=== PATIENT | male | born 2000 | race Caucasian/White ===

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

== ENCOUNTER 2021-01-03 13:01 | Outpatient (CLI) | payer BC, SELFPAY ==
--- NOTE | 2021-01-03 13:00 | RT.EKG_ITS ---
APPROVED REPORT Exam: Resting ECG Patient Location: O HR:90 bpm ECG Measurements Heart Rate 90 AXIS IA 142 P 41 QRSd 92 QRS 54 QT 356 T -58 QTc 436 Conclusion Sinus rhythm...normal P axis, V-rate 50- [address] elevation, anterior leads...ST >0.15mV in V1-V4 Baseline wander in lead(s) V5
== END 2021-01-03 13:02 | disposition home or self-care (01) ==
LOC: DI.CARD 13:02
PROVIDERS: PCP Family Medicine; Visit Provider Internal Medicine Cardiovascular Disease
DX: I42.9 Cardiomyopathy, unspecified (principal)
CPT/HCPCS: 93010; 93005

== ENCOUNTER 2021-04-23 13:04 | Outpatient (CLI) | payer BC, SELFPAY ==
--- NOTE | 2021-04-23 | DI.RAD_ITS ---
Exam(s) XR SHOULDER LT COMPLETE 2+V EXAM: XR SHOULDER LT COMPLETE 2+V CLINICAL HISTORY: LT SHOULDER PAIN, M25.512. TECHNIQUE: 2D digital imaging was performed. COMPARISON: CR LEFT SHOULDER COMPLETE from 12/21/2015 CR CHEST 2 VIEWS PA,LAT from 04/22/2018 CR XR shoulder LT complete 2+V from 12/16/2018 FINDINGS: BONES: No acute fracture is present. No bony destructive lesion is seen. JOINTS: No dislocation present. No widening of the AC joint. SOFT TISSUE: Normal. IMPRESSION: Unremarkable radiographs of the left shoulder DATA REPOSITORY: RADIATION DOSE DELIVERED:
== END 2021-04-23 13:24 ==
PROVIDERS: PCP Family Medicine; Visit Provider Family Medicine
DX: M25.512 Pain in left shoulder (principal)
CPT/HCPCS: 73030

== ENCOUNTER 2021-10-21 08:19 | Outpatient (REF) | payer BC, SELFPAY ==
[2021-10-21 16:16] LABS: TSH (W/Ref FT4) 4.05 uIU/mL (0.36-3.74)
[2021-10-21 16:42] LABS: FREE T4 1.07 ng/dL (0.76-1.46)
[2021-10-21 16:45] LABS: Hemoglobin A1C 5.5 % (<5.7)
== END 2021-10-21 08:20 | disposition home or self-care (01) ==
LOC: LBN 08:19
PROVIDERS: PCP Family Medicine; Visit Provider Psychiatry & Neurology Neurology
DX: R73.9 Hyperglycemia, unspecified; G56.03 Carpal tunnel syndrome, bilateral upper limbs
CPT/HCPCS: 83036; 84439; 84443

== ENCOUNTER 2021-11-14 18:41 | Outpatient (REF) | payer BC, SELFPAY ==
[2021-11-14 19:50] LABS: ESR 40 mm/hr (0-15)
[2021-11-14 20:09] LABS: ALT 25 U/L (16-63); AST 21 U/L (15-37); Albumin 4.3 g/dL (3.4-5.0); Alkaline Phosphatase 125 U/L (46-116); Anion Gap 12.1 mmol/L (3-11); BUN 10 mg/dL (7-18); Bilirubin, Total 0.3 mg/dL (0.2-1.0); CO2 23.9 mmol/L (21.0-32.0); CREATININE 0.8 mg/dL (0.70-1.30); Calcium 9.3 mg/dL (8.5-10.1); Calculated LDL 107 mg/dL (<100); Chloride 101 mmol/L (98-107); Cholesterol 166 mg/dL (<200); Glucose 95 mg/dL (74-106); HDL Cholesterol 36 mg/dL (40-60); Potassium 4.6 mmol/L (3.5-5.1); Sodium 137 mmol/L (136-145); Total Protein 8.8 g/dL (6.4-8.2); Triglyceride 118 mg/dL (<150)
[2021-11-14 20:18] LABS: C-Reactive Protein 0.84 mg/dL (0.0-0.3)
[2021-11-15 17:17] LABS: Rheumatoid Factor <8.6 IU/mL (<12.0)
[2021-11-18 08:44] LABS: Cyclic Citrullinated Peptide <2.5 U/mL (<5.0)
[2021-11-18 15:11] LABS: ANA Interpretation Negative (Negative)
== END 2021-11-14 18:42 | disposition home or self-care (01) ==
LOC: NCHCN 18:41
PROVIDERS: PCP Family Medicine; Visit Provider Family Medicine
DX: M25.50 Pain in unspecified joint (principal); G56.03 Carpal tunnel syndrome, bilateral upper limbs
CPT/HCPCS: 80053; 80061; 85652; 86200; 86038; 86140; 86431

== ENCOUNTER 2022-04-25 18:47 | Outpatient (REF) | payer BC, SELFPAY ==
[2022-04-25 16:19] LABS: Anion Gap 11.7 mmol/L (3-11); BUN 14 mg/dL (7-18); CO2 24.3 mmol/L (21.0-32.0); CREATININE 0.8 mg/dL (0.70-1.30); Calcium 9.3 mg/dL (8.5-10.1); Chloride 103 mmol/L (98-107); Glucose 100 mg/dL (74-106); Potassium 4.3 mmol/L (3.5-5.1); Sodium 139 mmol/L (136-145)
== END 2022-04-25 18:48 | disposition home or self-care (01) ==
LOC: NCHCN 18:47
PROVIDERS: PCP Family Medicine; Visit Provider Family Medicine
DX: I10 Essential (primary) hypertension (principal)
CPT/HCPCS: 80048

== ENCOUNTER 2022-12-23 17:17 | Outpatient (REF) | payer BC, SELFPAY | END 2022-12-23 17:18 | disposition home or self-care (01) | LOC: NCHCN 17:17 | PROVIDERS: PCP Family Medicine; Visit Provider Family Medicine | DX: L05.01 Pilonidal cyst with abscess (principal) | CPT/HCPCS: 87077; 87070; 87186; 87205 ==

== ENCOUNTER 2023-02-11 01:43 | Outpatient (CLI) | payer BC, SELFPAY ==
--- NOTE | 2023-02-11 | DI.RAD_ITS ---
Exam(s) XR LUMBAR SPINE COMPLETE EXAM: XR LUMBAR SPINE COMPLETE CLINICAL HISTORY: LOW BACK PAIN M54.9 RADICULAR SYNDROME LOWER LIMBS M54.10. TECHNIQUE: 2D digital imaging was performed of the lumbar spine. Five images were obtained. AP, la teral, right oblique, left oblique and L5-S1 spot views were obtained. COMPARISON: No exams were available for comparison FINDINGS: BONES: No fracture or destructive lesion. Vertebral bodies are unremarkable. No facet hypertrophy sorin ntified. DISKS: Intervertebral disc spaces are maintained. ALIGNMENT: Lumbar spinal alignment is within normal limits. No spondylolysis or spondylolisthesis. SOFT TISSUE: Normal. IMPRESSION: Unremarkable radiographs of the lumbar spine. DATA REPOSITORY: RADIATION DOSE DELIVERED:
--- NOTE | 2023-02-11 | DI.RAD_ITS ---
Exam(s) XR SACROILIAC JOINTS EXAM: XR SACROILIAC JOINTS CLINICAL HISTORY: LOW BACK PAIN M54.59. TECHNIQUE: 2D digital imaging was performed. Three images were obtained. COMPARISON: CR PELVIS AP from 12/21/[address] pelvic w from 02/01/2019 CR XR LUMBAR SPINE COMPLETE from 02/11/2023 FINDINGS: Bones: No fracture is present. No bony destructive lesion is seen. Alignment is satisfactory. SI Joint:No ankylosis is seen. There is mild sclerosis of the left SI joint. Soft Tissue: Normal. IMPRESSION: Mild sclerosis but the left SI joint which may represent sacroiliitis. DATA REPOSITORY: RADIATION DOSE DELIVERED:
== END 2023-02-11 02:03 ==
LOC: DI 01:44
PROVIDERS: PCP Family Medicine; Visit Provider Nurse Practitioner Family
DX: M54.59 Other low back pain (principal); M53.3 Sacrococcygeal disorders, not elsewhere classified; M54.16 Radiculopathy, lumbar region
CPT/HCPCS: 72110; 72202

== ENCOUNTER 2023-02-16 13:47 | Outpatient (REF) | payer BC, SELFPAY ==
[2023-02-16 15:55] LABS: Abs Immature Grans 0.06 10^3/uL (0.0-0.06); Absolute Basophil Count 0.05 10^3/uL (0.0-0.2); Absolute Eosinophil Count 0.19 10^3/uL (0.0-0.7); Absolute Monocyte Count 0.76 10^3/uL (0.1-0.8); Basophils % 0.4; Eosinophils % 1.6; HCT 43.1 % (40.0-50.0); HGB 14.5 g/dL (13.5-17.5); Immature Grans % 0.5; Lymphocytes % 16.2; MCH 29.6 pg (27.0-33.0); MCHC 33.6 % (32.0-36.0); MCV 88 fL (80-95); MPV 10.5 fL (8.0-11.0); Monocytes % 6.4; Neutrophils % 74.9; Platelet Count 287 10^3/uL (130-400); RDW 11.9 % (11.8-14.1); RDW-SD 38.5 fL; WBC 11.88 10^3/uL (4.4-10.8)
[2023-02-16 15:57] LABS: Absolute Lymphocyte Count 1.92 10^3/uL (1.2-3.4)
[2023-02-16 16:00] LABS: ESR 45 mm/hr (0-15)
[2023-02-16 16:05] LABS: C-Reactive Protein 3.27 mg/dL (0.0-0.3)
[2023-02-17 17:45] LABS: Rheumatoid Factor <8.6 IU/mL (<12.0)
[2023-02-19 14:31] LABS: HLA-B27 Result Positive
== END 2023-02-16 13:48 | disposition home or self-care (01) ==
LOC: NCHCN 13:47
PROVIDERS: PCP Family Medicine; Visit Provider Nurse Practitioner Family
DX: M46.1 Sacroiliitis, not elsewhere classified (principal); M54.32 Sciatica, left side
CPT/HCPCS: 85652; 86812; 85025; 86140; 86431

== ENCOUNTER 2023-02-24 16:58 | Outpatient (REF) | payer BC, SELFPAY ==
[2023-02-24 16:11] LABS: Abs Immature Grans 0.03 10^3/uL (0.0-0.06); Absolute Basophil Count 0.04 10^3/uL (0.0-0.2); Absolute Lymphocyte Count 2.08 10^3/uL (1.2-3.4); Absolute Monocyte Count 0.65 10^3/uL (0.1-0.8); Absolute Neutrophil Count 7.52 10^3/uL (1.2-6.7); Basophils % 0.4; Eosinophils % 1.9; HCT 44.8 % (40.0-50.0); Immature Grans % 0.3; Lymphocytes % 19.8; MCH 29.3 pg (27.0-33.0); MCHC 33.5 % (32.0-36.0); MCV 88 fL (80-95); MPV 10.1 fL (8.0-11.0); Monocytes % 6.2; Neutrophils % 71.4; Platelet Count 360 10^3/uL (130-400); RBC 5.12 10^6/uL (4.36-5.78); RDW 11.7 % (11.8-14.1); RDW-SD 37.6 fL; WBC 10.52 10^3/uL (4.4-10.8)
== END 2023-02-24 16:59 | disposition home or self-care (01) ==
LOC: NCHCN 16:58
PROVIDERS: PCP Family Medicine; Visit Provider Family Medicine
DX: M46.1 Sacroiliitis, not elsewhere classified (principal)
CPT/HCPCS: 85025

== ENCOUNTER 2023-03-06 11:45 | Outpatient (CLI) | payer BC, SELFPAY ==
--- NOTE | 2023-03-06 | DI.MRI_ITS ---
Exam(s) MR LUMBAR SPINE WO EXAM: MR LUMBAR SPINE WO CLINICAL HISTORY: WEAKNESS LT LEG, R53.1. TECHNIQUE: Multiplanar multisequence MRI of the Lumbar spine was performed. COMPARISON: CR XR LUMBAR SPINE COMPLETE from 02/11/2023 FINDINGS: Bones: The last intervertebral disc space is designated the L5/S1 level for the numbering purpose of this examination. The vertebral body heights are well maintained. Alignment is satisfactory. The si gnal characteristics are unremarkable. Cord: The conus tip ends at the L1 level. It is of normal size and signal intensity. T12-L1: No disc herniations or bulges are present. No central spinal canal or neural foraminal stenos is. L1-2: No disc herniations or bulges are present. No central spinal canal or neural foraminal stenosis . L2-3: No disc herniations or bulges are present. No central spinal canal or neural foraminal stenosis . L3-4: No disc herniations or bulges are present. No central spinal canal or neural foraminal stenosis . L4-5: No disc herniations or bulges are present. No central spinal canal or neural foraminal stenosis . L5-S1: No disc herniations or bulges are present. No central spinal canal or neural foraminal stenosi s. Soft tissues: The visualized SI joints and sacrum are well maintained. The paraspinal soft tissues ar e unremarkable. IMPRESSION: No evidence of disc herniation, significant spinal stenosis or neuroforaminal narrowing. DATA REPOSITORY:
== END 2023-03-06 12:05 ==
LOC: DI 11:46
PROVIDERS: PCP Family Medicine; Visit Provider Family Medicine
DX: R53.1 Weakness (principal)
CPT/HCPCS: 72148